=== PATIENT | male | born 2000 | race Caucasian/White ===

== ENCOUNTER 2018-07-10 20:15 | Emergency (ER) | payer OTHER ==
[2018-07-10] MEDS ORDERED: LIDOCAINE 2% JELLY 20 ML (UROJECT) ONE (20:46)
--- NOTE | 2018-07-10 20:46 | EDPHY ---
H & P Time Seen by Provider: 07/10/18 20:35 HPI/ROS: CHIEF COMPLAINT: "I think I have hemorrhoids" HISTORY OF PRESENT ILLNESS: 17-year-old male in the ER via private vehicle complaining of pain with defecation possible hemorrhoids. Went to an urgent care and was told to go to the ER for evaluation . Denies melena hematochezia. Denies rectal foreign body insertion. Denies fever chills. Denies abdominal pain. Denies blood or pus in stool. PRIMARY CARE PROVIDER: REVIEW OF SYSTEMS: 10 systems reviewed and negative with the exception of the elements mentioned in the history of present illness PAST MEDICAL & SURGICAL HISTORY: no coagulant use SOCIAL HISTORY: Student PHYSICAL EXAM (Prior to examination, patient consented to physical exam, hands were washed and my usual and customary physical exam procedures followed) 1) GENERAL: Well-developed, well-nourished, alert and oriented. Appears to be in no acute distress. 2) HEAD: Normocephalic, atraumatic 3) HEENT: Pupils equal, round, reactive to light bilaterally. Sclera anicteric. 4) NECK: Full range of motion, no meningeal signs. 5) LUNGS: Clear auscultation bilaterally, no wheezes, no rhonchi, no retractions. 6) HEART: Regular rate and rhythm, no murmur, no heave, no gallop. 7) ABDOMEN: No guarding, no rebound, no focal tenderness, negative McBurney's, negative Damian's, negative Rovsing's, negative peritoneal sign, 8) MUSCULOSKELETAL: Moving all extremities, no focal areas of tenderness, no obvious trauma. No peripheral edema or discoloration. 9) BACK: No CVA tenderness, no midline vertebral tenderness, no fluctuance, no step-off, no obvious trauma, no visual or palpable abnormality. 10) SKIN: No rash, no petechiae. 11) : At the 10 o'clock perianal position he has fluctuance and tenderness consistent with perianal abscess. No hemorrhoid or fissure noted. DIFFERENTIAL DIAGNOSIS: In no particular include but limited to anal fissure, perianal abscess, perirectal abscess, thrombosed hemorrhoid, internal hemorrhoid , external hemorrhoid Smoking Status: Never smoked Constitutional: Initial Vital Signs Temperature (C) 37.1 C 07/10/18 20:20 Heart Rate 83 07/10/18 20:20 Respiratory Rate 18 07/10/18 20:20 Blood Pressure 134/57 H 07/10/18 20:20 O2 Sat (%) 98 07/10/18 20:20 O2 Delivery Mode Room Air Allergies/Adverse Reactions: No Known Allergies Allergy (Unverified 07/10/18 20:20) Home Medications: Medication Instructions Recorded Cephalexin [Keflex] 500 mg PO TID 10 Days cap 07/10/18 Hydrocodone/APAP 5/325 [Gratis 1 tab PO Q6 PRN #7 tab 07/10/18 5/325 (RX)] Sulfamethox/Tmp 800/160 mg 1 tab PO BID@1000,2200 10 Days tab 07/10/18 [Bactrim Ds] MDM/Departure - MDM Procedures: Procedure: Abscess drainage. The patient's abscess was located on the perianal region. I obtained verbal consent from the patient to drain the abscess who was informed about the possibility of bleeding and pain. The abscess was incised with a scalpel and a moderate amount of purulent drainage was expressed. I irrigated the wound and placed some packing. The patient tolerated the procedure well. The procedure was performed by myself. ED Course/Re-evaluation: Patient has evidence of perianal abscess which was incised and drained by myself. He will need follow-up with General surgery on-call Dr. Alli Rubio in next 1-2 days. Informed that he may necessitate read incision and drainage. He will be started on antibiotics, analgesia, given my usual customary precautions instructions. Doubt perirectal abscess. I saw this patient independently based on established practice protocols. Care of patient under supervision of secondary supervising physician Dr Jeremy Espinal . - Depart Disposition: Home, Routine, Self-Care Clinical Impression: Perianal abscess Condition: Good Instructions: Narcotic-Analgesic/Acetaminophen (By mouth), Abscess (ED), Cephalexin (By mouth), Sulfamethoxazole/Trimethoprim (By mouth) Additional Instructions: Increase your fiber and fluid intake. Follow up with surgeon as directed in your instructions. Stand Alone Forms: School Excuse Prescriptions: Cephalexin [Keflex] 500 mg PO TID 10 Days cap Hydrocodone/APAP 5/325 [Gratis 5/325 (RX)] 1 tab PO Q6 PRN #7 tab PRN Reason: Pain, Severe Sulfamethox/Tmp 800/160 mg [Bactrim Ds] 1 tab PO BID@1000,2200 10 Days tab Referrals: Alli Rubio MD [Medical Doctor] - 1-2 days without fail
[2018-07-10] MEDS ORDERED: CEPHALEXIN 500MG PREPACK#4 BTL TAKEHOME ONE (21:55)
[2018-07-10] MEDS ORDERED: HYDROCOD/APAP 5/325 PREPACK#6 BTL TAKEHOME ONE (21:55)
[2018-07-10] MEDS ORDERED: SULFAMET/TMP DS PREPACK#2 BTL TAKEHOME ONE (21:55)
[2018-07-10 22:21] VITALS: BP 128/60
== END 2018-07-10 22:20 | disposition home or self-care (01) ==
PROC: 0H98XZZ Drainage of Buttock Skin, External Approach (ICD-10-PCS; principal; 2018-07-10)
DX: K61.0 Anal abscess (principal)

== ENCOUNTER 2018-07-21 10:29 | Day surgery (SDC) | payer OTHER ==
[2018-07-21] MEDS ORDERED: LR 1,000 ML IV ONE (10:36)
[2018-07-21] MEDS ORDERED: cefOXitin SODIUM 2 GM in NS 100 ML IV ONE (10:36)
[2018-07-21] MEDS ORDERED: METHYLENE BLUE 0.5% 50 MG/10 ML AMP ONE (10:51)
[2018-07-21] MEDS ORDERED: BUPIVACAINE/EPI 0.5% 30 ML SDV ONE (10:51)
[2018-07-21] MEDS ORDERED: HYDROGEN PEROXIDE 473 ML BOTTLE TP ONE (10:51)
[2018-07-21] MEDS ORDERED: DIAZEPAM 5 MG TAB PO ONE (11:07)
--- NOTE | 2018-07-21 11:16 | PDANEPAE ---
ANE History of Present Illness 17 YO male with perirectal abscess. ANE Past Medical History - Cardiovascular History Hx Hypertension: No Hx Arrhythmias: No Hx Chest Pain: No Hx Coronary Artery / Peripheral Vascular Disease: No Hx CHF / Valvular Disease: No Hx Palpitations: No - Pulmonary History Hx COPD: No Hx Asthma/Reactive Airway Disease: No Hx Recent Upper Respiratory Infection: No Hx Oxygen in Use at Home: No Hx Sleep Apnea: No Sleep Apnea Screening Result - Last Documented: Negative - Neurologic History Hx Cerebrovascular Accident: No Hx Seizures: No Hx Dementia: No - Endocrine History Hx Diabetes: No Hypothyroid: No Hyperthyroid: No Obesity: no - Renal History Hx Renal Disorders: No - Liver History Hx Hepatic Disorders: No - Neurological & Psychiatric Hx Hx Neurological and Psychiatric Disorders: No - Cancer History Hx Cancer: No - Congenital Disorder History Hx Congenital Disorders: No - GI History Hx Gastrointestinal Disorders: Yes Gastrointestinal History Comment: perirectal ABSCESS DRAINED IN ED 07/11/18 - Other Health History Other Health History: WEARS GLASSES/ CONTACTS. ECZEMA - Chronic Pain History Chronic Pain: No - Surgical History Prior Surgeries: WISDOM TEETH REMOVED SUMMER 2016 ANE Review of Systems Review of Systems: - Exercise capacity METS (RN): 4 METS ANE Patient History - Allergies Allergies/Adverse Reactions: No Known Allergies Allergy (Verified 07/20/18 17:48) - Home Medications Home Medications: Advil 07/20/18 [Last Taken 07/20/18] Colace 07/20/18 [Last Taken 07/20/18] Sulfamethox/Tmp 800/160 mg [Bactrim Ds] 07/20/18 [Last Taken 07/20/18] - NPO status NPO Since - Liquids (Date): 07/21/18 NPO Since - Liquids (Time): 08:00 NPO Since - Solids (Date): 07/20/18 NPO Since - Solids (Time): 23:00 - Anes Hx Anes Hx: no prior problems - Smoking Hx Smoking Status: Former smoker Marijuana use: Yes - Alcohol Use Alcohol Use: Occasionally (3/week) - Family Anes Hx Family Anes Hx: neg - N/A Family Hx Anesthesia Complications: NONE ANE Labs/Vital Signs - Vital Signs Blood Pressure: 137/82 Heart Rate: 72 Respiratory Rate: 16 O2 Sat (%): 98 Height: 187.96 cm Weight: 79.379 kg ANE Anesthesia Plan Anesthesia Plan: GA w LMA
--- NOTE | 2018-07-21 11:51 | PDHPUP ---
History & Physical Update H&P update statement: This history and physical update is based on an assessment of the patient which was completed after admission or registration (within 24 hours), but prior to the surgery/procedure. H&P update: H&P reviewed & patient examined, no change in patient's condition since H&P completed
[2018-07-21] MEDS ORDERED: fentaNYL 100 MCG/2 ML INJ ONE ×3 (12:04→13:43)
[2018-07-21] MEDS ORDERED: PROPOFOL/EMULSION 500 MG/50 ML BOTTLE IV ONE (12:05)
[2018-07-21] MEDS ORDERED: NALOXONE HCL 0.4 MG/ML INJ IVP PRN (12:18)
[2018-07-21] MEDS ORDERED: oxyCODONE IR 5 MG TAB PO PRN (12:18)
[2018-07-21] MEDS ORDERED: METOCLOPRAMIDE 10 MG/2 ML VIAL IVP PRN (12:18)
[2018-07-21] MEDS ORDERED: HYDROCODONE/APAP 5/325 TAB PO PRN (12:18)
[2018-07-21] MEDS ORDERED: PROMETHAZINE HCL 25 MG/ML INJ IVP PRN (12:18)
[2018-07-21] MEDS ORDERED: LR 500 ML IV PRN (12:18)
[2018-07-21] MEDS ORDERED: ONDANSETRON 4 MG/2 ML VIAL IVP PRN (12:18)
[2018-07-21] MEDS ORDERED: DEXAMETHASONE 4 MG/ML VIAL IVP PRN (12:18)
[2018-07-21] MEDS ORDERED: ACETAMINOPHEN 500 MG TAB PO PRN (12:18)
[2018-07-21] MEDS ORDERED: ALBUTEROL 3 ML DEYVIAL IH PRN (12:18)
--- NOTE | 2018-07-21 12:18 | PDANEPAE ---
ANE Past Medical History - Cardiovascular History Hx Hypertension: No Hx Arrhythmias: No Hx Chest Pain: No Hx Coronary Artery / Peripheral Vascular Disease: No Hx CHF / Valvular Disease: No Hx Palpitations: No - Pulmonary History Hx COPD: No Hx Asthma/Reactive Airway Disease: No Hx Recent Upper Respiratory Infection: No Hx Oxygen in Use at Home: No Hx Sleep Apnea: No Sleep Apnea Screening Result - Last Documented: Negative - Neurologic History Hx Cerebrovascular Accident: No Hx Seizures: No Hx Dementia: No - Endocrine History Hx Diabetes: No - Renal History Hx Renal Disorders: No - Liver History Hx Hepatic Disorders: No - Neurological & Psychiatric Hx Hx Neurological and Psychiatric Disorders: No - Cancer History Hx Cancer: No - Congenital Disorder History Hx Congenital Disorders: No - GI History Hx Gastrointestinal Disorders: Yes Gastrointestinal History Comment: PERIANAL ABSCESS DRAINED IN ED 07/11/18 - Other Health History Other Health History: WEARS GLASSES/ CONTACTS. ECZEMA - Chronic Pain History Chronic Pain: No - Surgical History Prior Surgeries: WISDOM TEETH REMOVED SUMMER 2016 ANE Review of Systems Review of Systems: - Exercise capacity METS (RN): 4 METS ANE Patient History - Allergies Allergies/Adverse Reactions: No Known Allergies Allergy (Verified 07/20/18 17:48) - Home Medications Home Medications: Advil 07/20/18 [Last Taken 07/20/18] Colace 07/20/18 [Last Taken 07/20/18] Sulfamethox/Tmp 800/160 mg [Bactrim Ds] 07/20/18 [Last Taken 07/20/18] - NPO status NPO Since - Liquids (Date): 07/21/18 NPO Since - Liquids (Time): 08:00 NPO Since - Solids (Date): 07/20/18 NPO Since - Solids (Time): 23:00 - Smoking Hx Smoking Status: Former smoker - Family Anes Hx Family Hx Anesthesia Complications: NONE ANE Labs/Vital Signs - Vital Signs Blood Pressure: 137/82 Heart Rate: 72 Respiratory Rate: 16 O2 Sat (%): 98 Height: 187.96 cm Weight: 79.379 kg ANE Physical Exam - Airway Neck exam: FROM Mallampati Score: Class 1 Mouth exam: normal dental/mouth exam - Pulmonary Pulmonary: no respiratory distress, no rales or rhonchi, clear to auscultation - Cardiovascular Cardiovascular: regular rate and rhythym, no murmur, rub, or gallop - ASA Status ASA Status: II ANE Anesthesia Plan Anesthesia Plan: GA w LMA
[2018-07-21] MEDS ORDERED: EPINEPHrine 1 MG/ML INJ ONE (12:27)
[2018-07-21] MEDS ORDERED: KETOROLAC 30 MG/1 ML SDV ONE (12:40)
[2018-07-21] MEDS ORDERED: LIDOCAINE 2% 2 ML INJ ONE (12:40)
[2018-07-21] MEDS ORDERED: ONDANSETRON 4 MG/2 ML VIAL ONE (12:40)
[2018-07-21] MEDS ORDERED: DEXAMETHASONE 4 MG/ML VIAL ONE (12:40)
--- NOTE | 2018-07-21 13:15 | POSTANESTH ---
Post Anesthetic Evaluation Cardiovascular Status: Normal, Stable, Similar to Pre-Op Cond Respiratory Status: Normal, Stable, Similar to Pre-op Cond. Level of Consciousness/Mental Status: Unconscious Pain Control: Adequate, Prn Tx Ordered Nausea/Vomiting Control: Adequate, Prn Tx Ordered Complications Possibly Related to Anesthesia: None Noted
[2018-07-21] MEDS ORDERED: oxyCODONE IR 5 MG TAB ONE (13:21)
[2018-07-21] MEDS: fentaNYL 100 MCG/2 ML INJ IVP PRN ×7 (13:22→14:11)
[2018-07-21 14:57] VITALS: BP 117/63
[2018-07-21] MEDS ORDERED: HYDROCODONE/APAP 5/325 TAB ONE (15:09)
--- NOTE | 2018-07-23 10:04 | GOP ---
DATE OF OPERATION: 07/21/2018 SURGEON: Alli Rubio MD PREOPERATIVE DIAGNOSIS: Perirectal abscess and anal fistula. POSTOPERATIVE DIAGNOSIS: Perirectal abscess and anal fistula. PROCEDURE PERFORMED: Incision and drainage of perirectal abscess and anal fistulectomy. FINDINGS: Patient was found to have a superficial anal fistula at the 5 o'clock position with associ ated abscess. DESCRIPTION OF PROCEDURE: The patient was taken to the operating room, where he received a satisfact ory general endotracheal anesthesia. He was placed in lithotomy position, prepped and draped in usua l sterile fashion. The anal fistula was identified. It was probed and probed easily passed into the anal canal just abo ve the anal verge. The fistula was then excised. This resulted in entering into an abscess cavity, which was drained and cultured. Hemostasis was obtained. The wound was left open and packed with Xe roform gauze, and infiltrated with 0.5% Marcaine. He tolerated the procedure well. There were no co mplications. He was taken to recovery room in good condition. /[id number]/MODL
== END 2018-07-21 16:01 | disposition home or self-care (01) ==
LOC: FSGY 10:29
PROVIDERS: ATTEND Surgery
DX: K61.1 Rectal abscess (principal)
CPT/HCPCS: J0171; J0694; J1100; J1885; J2270; J2405; J2704; J3010; Q9968